=== PATIENT | female | born 1980 | race Caucasian/White ===

== ENCOUNTER 2018-08-29 20:12 | Emergency (ER) | payer MEDICAID ==
[2018-08-29] MEDS: METOCLOPRAMIDE 10 MG TAB PO (22:51)
[2018-08-29 22:53] LABS: ADD MAN DIFF? NO
[2018-08-29 22:55] LABS: BASOPHIL # 0.1 10^3/ul (0.0-0.1); BASOPHILS % 0.5 % (0.0-2.0); EOSINOPHILS # 0.2 10^3/ul (0.0-0.5); EOSINOPHILS % 1.4 % (0.0-7.0); HEMATOCRIT 36.3 % (37.0-47.0); HEMOGLOBIN 12.3 g/dl (12.0-16.0); LYMPHOCYTES # 3.6 10^3/ul (0.8-2.9); LYMPHOCYTES % 26.1 % (15.0-51.0); MEAN CORPUSCULAR HEMOGLOBIN 31.1 pg (29.0-33.0); MEAN CORPUSCULAR HGB CONC 33.9 g/dl (32.0-37.0); MEAN CORPUSCULAR VOLUME 91.7 fl (82.0-101.0); MEAN PLATELET VOLUME 11.6 fl (7.4-10.4); MONOCYTE # 0.8 10^3/ul (0.3-0.9); MONOCYTES % 5.8 % (0.0-11.0); NEUTROPHIL # 9.1 10^3/ul (1.6-7.5); NEUTROPHILS % 65.8 % (39.0-77.0); PLATELET COUNT 241 10^3/UL (140-415); RED BLOOD COUNT 3.96 10^6/ul (4.20-5.40); RED CELL DISTRIBUTION WIDTH 11.9 % (11.5-14.5)
[2018-08-29 22:55] LABS: WHITE BLOOD COUNT 13.9 10^3/ul (4.8-10.8)
[2018-08-29 23:01] LABS: ADD UMIC YES; UR ASCORBIC ACID 40 mg/dL (NEGATIVE); UR BILIRUBIN (Dip) NEGATIVE (NEGATIVE); UR BLOOD (Dip) NEGATIVE (NEGATIVE); UR CLARITY SLIGHTLY CLOUDY (CLEAR); UR COLOR YELLOW (YELLOW); UR GLUCOSE (Dip) NEGATIVE (NEGATIVE); UR KETONES (Dip) NEGATIVE (NEGATIVE); UR LEUKOCYTE ESTERASE (Dip) TRACE Leu/ul (NEGATIVE); UR MUCUS MANY /HPF (NONE SEEN); UR NITRITE (Dip) NEGATIVE (NEGATIVE); UR RBC 2 /HPF (0-5); UR SPECIFIC GRAVITY (Dip) 1.026 (1.003-1.030); UR SQUAMOUS EPITHELIAL CELL FEW /HPF (FEW); UR TOTAL PROTEIN (Dip) NEGATIVE (NEGATIVE); UR UROBILINOGEN (Dip) NEGATIVE (NEGATIVE); UR WBC 2 /HPF (0-5)
== END 2018-08-30 02:58 | disposition home or self-care (01) ==
LOC: FTE 08-30 02:58
DX: O26.891 Other specified pregnancy related conditions, first trimester (principal); N84.0 Polyp of corpus uteri; O34.41 Maternal care for other abnormalities of cervix, first trimester; R10.2 Pelvic and perineal pain; Z3A.01 Less than 8 weeks gestation of pregnancy
CPT/HCPCS: 36415; 76801; 76817; 81001; 84702; 85025; 86900; 86901; 99284-25

== ENCOUNTER 2018-09-19 17:33 | Emergency (ER) | payer MEDICAID | END 2018-09-19 22:05 | disposition home or self-care (01) | LOC: FTE 17:33 | DX: O21.9 Vomiting of pregnancy, unspecified (principal); Z3A.08 8 weeks gestation of pregnancy | CPT/HCPCS: 99283; Z7502 ==

== ENCOUNTER 2019-04-11 04:10 | Inpatient (IN) | payer MEDICAID ==
[2019-04-11] MEDS ORDERED: METHYLERGONOVINE 0.2 MG INJ IM ×2 (05:00→11:00)
[2019-04-11] MEDS ORDERED: MISOPROSTOL 200 MCG TAB PR ×2 (05:00→11:00)
[2019-04-11] MEDS ORDERED: CARBOPROST 250 MCG INJ IM ×2 (05:00→11:00)
[2019-04-11] MEDS ORDERED: OXYTOCIN 30 UNITS/LR 500 ML IV ×4 (05:00→11:00)
[2019-04-11] MEDS: LACTATED RINGER'S 1,000 ML IV ×3 (05:47→09:16)
[2019-04-11] MEDS: TERBUTALINE 1 MG/ML INJ SC ×2 (05:47→06:31)
[2019-04-11 06:41] LABS: ADD MAN DIFF? NO
[2019-04-11 06:47] LABS: WHITE BLOOD COUNT 13.1 10^3/ul (4.8-10.8)
[2019-04-11 06:47] LABS: BASOPHIL # 0.1 10^3/ul (0.0-0.1); BASOPHILS % 0.4 % (0.0-2.0); EOSINOPHILS # 0.1 10^3/ul (0.0-0.5); EOSINOPHILS % 0.6 % (0.0-7.0); HEMATOCRIT 36.7 % (37.0-47.0); LYMPHOCYTES # 1.6 10^3/ul (0.8-2.9); MEAN CORPUSCULAR HEMOGLOBIN 30.8 pg (29.0-33.0); MEAN CORPUSCULAR HGB CONC 32.7 g/dl (32.0-37.0); MEAN CORPUSCULAR VOLUME 94.3 fl (82.0-101.0); MONOCYTE # 0.7 10^3/ul (0.3-0.9); MONOCYTES % 5.5 % (0.0-11.0); NEUTROPHIL # 10.5 10^3/ul (1.6-7.5); NEUTROPHILS % 79.6 % (39.0-77.0); PLATELET COUNT 166 10^3/UL (140-415); RED BLOOD COUNT 3.89 10^6/ul (4.20-5.40); RED CELL DISTRIBUTION WIDTH 14.4 % (11.5-14.5)
[2019-04-11 07:06] LABS: INR 0.89; PROTIME 12.2 Sec (11.9-14.9)
[2019-04-11 07:07] LABS: PARTIAL THROMBOPLASTIN TIME 26.8 Sec (23.0-35.0)
[2019-04-11] MEDS ORDERED: CEFAZOLIN 2 GM/50 ML (PMX) 0 ML IVPB (07:24)
[2019-04-11] MEDS ORDERED: CEFAZOLIN 2 GM/50 ML (PMX) 50 ML IVPB (07:30)
[2019-04-11 07:39] LABS: HEPATITIS B SURFACE ANTIGEN NEGATIVE (NEGATIVE)
[2019-04-11] MEDS ORDERED: morphine 10 MG INJ (07:45)
[2019-04-11] MEDS: morphine 10 MG INJ IV (08:02)
[2019-04-11] MEDS: GENTAMICIN 120 MG/NS (PMX) 100 ML IVPB (08:55)
[2019-04-11] MEDS: CITRIC ACID/NA CITRATE 30 ML CUP PO (09:15)
[2019-04-11] MEDS ORDERED: morphine SULFATE/PF (10 MG/10 ML) INJ (09:37)
[2019-04-11] MEDS ORDERED: KETOROLAC 30 MG INJ (09:37)
[2019-04-11] MEDS ORDERED: METOCLOPRAMIDE 10 MG INJ (09:38)
[2019-04-11] MEDS: CLINDAMYCIN 900 MG (PMX) 50 ML IVPB (09:45)
[2019-04-11] MEDS ORDERED: PHENYLephrine (100 MCG/ML) 10ML SYG (09:47)
[2019-04-11] MEDS ORDERED: NA PHOSPHATE/BIPHOS 133 ML ENEMA PR (11:00)
[2019-04-11] MEDS ORDERED: NACL 0.9% 3 ML SYG IV (11:00)
[2019-04-11] MEDS ORDERED: morphine 2 MG INJ IV ×4 (11:30)
[2019-04-11] MEDS ORDERED: NALOXONE (0.4 MG/ML) INJ IV (11:30)
[2019-04-11] MEDS ORDERED: DIPHENHYDRAMINE 50 MG INJ IV (11:30)
[2019-04-11] MEDS ORDERED: ONDANSETRON 4 MG INJ IV (11:30)
[2019-04-11] MEDS: IBUPROFEN 600 MG TAB PO ×2 (12:00→18:00)
[2019-04-11] MEDS: OXYTOCIN 30 UNITS/LR 500 ML IV ×2 (12:29→16:06)
[2019-04-11] MEDS: morphine 2 MG INJ IV (12:51)
[2019-04-11] MEDS: ONDANSETRON 4 MG INJ IV (12:55)
[2019-04-11] MEDS: DIPHENHYDRAMINE 50 MG INJ IV (16:07)
[2019-04-11] MEDS: KETOROLAC 30 MG INJ IV ×2 (16:07→23:40)
[2019-04-11] MEDS: LANOLIN HPA 1 PKT TOP (16:15)
[2019-04-11 18:49] LABS: RAPID PLASMA REAGIN NONREACTIVE (NR)
[2019-04-12] MEDS: OXYTOCIN 30 UNITS/LR 500 ML IV (01:42)
[2019-04-12] MEDS: morphine 2 MG INJ IV (03:37)
[2019-04-12] MEDS: LACTATED RINGER'S 1,000 ML IV ×2 (04:50→12:50)
[2019-04-12] MEDS: IBUPROFEN 600 MG TAB PO ×5 (06:00→23:59)
[2019-04-12 06:42] LABS: ADD MAN DIFF? NO
[2019-04-12 06:46] LABS: BASOPHILS % 0.4 % (0.0-2.0); EOSINOPHILS # 0.1 10^3/ul (0.0-0.5); EOSINOPHILS % 0.7 % (0.0-7.0); HEMATOCRIT 28.1 % (37.0-47.0); HEMOGLOBIN 9.1 g/dl (12.0-16.0); LYMPHOCYTES # 1.6 10^3/ul (0.8-2.9); LYMPHOCYTES % 15.6 % (15.0-51.0); MEAN CORPUSCULAR HEMOGLOBIN 31.1 pg (29.0-33.0); MEAN CORPUSCULAR HGB CONC 32.4 g/dl (32.0-37.0); MEAN CORPUSCULAR VOLUME 95.9 fl (82.0-101.0); MEAN PLATELET VOLUME 12.3 fl (7.4-10.4); MONOCYTE # 0.7 10^3/ul (0.3-0.9); MONOCYTES % 6.9 % (0.0-11.0); NEUTROPHIL # 7.5 10^3/ul (1.6-7.5); NEUTROPHILS % 75.3 % (39.0-77.0); PLATELET COUNT 130 10^3/UL (140-415); RED BLOOD COUNT 2.93 10^6/ul (4.20-5.40); RED CELL DISTRIBUTION WIDTH 14.6 % (11.5-14.5)
[2019-04-12] MEDS: KETOROLAC 30 MG INJ IV (06:55)
[2019-04-12] MEDS: FERROUS SULFATE (EC) 325 MG TAB PO ×2 (11:35→20:45)
[2019-04-12] MEDS: LANOLIN HPA 1 PKT TOP (11:35)
[2019-04-13] MEDS: HYDROCODONE/APAP (5/325) TAB PO ×3 (01:23→20:06)
[2019-04-13] MEDS: IBUPROFEN 600 MG TAB PO ×3 (05:31→17:29)
[2019-04-13] MEDS: FERROUS SULFATE (EC) 325 MG TAB PO ×2 (08:33→21:07)
[2019-04-13] MEDS: LANOLIN HPA 1 PKT TOP (08:34)
[2019-04-13 08:40] LABS: HEMATOCRIT 30.4 % (37.0-47.0); HEMOGLOBIN 9.7 g/dl (12.0-16.0)
[2019-04-14] MEDS: HYDROCODONE/APAP (5/325) TAB PO ×2 (00:18→07:45)
[2019-04-14] MEDS: IBUPROFEN 600 MG TAB PO ×3 (06:00→11:53)
[2019-04-14] MEDS: DIPHTH/TET/ACEL PERTUSS (ADULT) 0.5 ML VIAL IM* (08:12)
[2019-04-14] MEDS: MEASLES,MUMPS,RUBELLA VACCINE INJ SC* (08:12)
[2019-04-14] MEDS: FERROUS SULFATE (EC) 325 MG TAB PO (08:52)
== END 2019-04-14 13:10 | disposition home or self-care (01) | DRG 785 ==
LOC: OBT 04:10 → L-D 04:11 → OBT 04:38 → L-D 04:38 → PP1 15:00
PROVIDERS: Obstetrics & Gynecology
PROC: 10D00Z1 Extraction of Products of Conception, Low, Open Approach (ICD-10-PCS; principal; 2019-04-11)
PROC: 0UT70ZZ Resection of Bilateral Fallopian Tubes, Open Approach (ICD-10-PCS; 2019-04-11)
DX: O99.02 Anemia complicating childbirth (principal); Z3A.37 37 weeks gestation of pregnancy; Z37.0 Single live birth; Z30.2 Encounter for sterilization
CPT/HCPCS: 85014; 85018; 85025; 85610; 85730; 86592; 86850; 86900; 86901; 87340; 88302; 99464